=== PATIENT | male | born 1935 | race African-American/Black ===

== ENCOUNTER 2019-09-24 06:10 | Day surgery (SDC) | payer MEDICARE, OTHER ==
--- NOTE | 2019-09-23 09:49 | Opthalmology H&P ---
Ophthalmology H&P H&P Chief Complaint: decreased vision in right eye HPI Vision Affects Ability to: read, watch TV, drive, focus/use eyes together, manage personal affairs Past Ocular History: opacification - Opacified posterior capsule right eye, retinal problems - NPDR OU, HTN Retinopathy OU, HPI Narrative Blurry vision Exam Visual Acuity: OD: Hand Motion OS: 20/25 Tension: OD: 23 OS: 22 Eye Exam: normal OU: external exam, palpebral fissure-width, marginal reflex distance, levator function, corneas, anterior chambers, fundus exam; findings: lens - Pseudo OS, PCO OD Assessment/Plan Treatment Plan: other - Pars plana vitrectomy right eye Goals of Treatment: improvement of vision, enhance quality of life Attestation Attestation The risks and benefits of the surgery as well as alternative procedures were explained to the patient in detail. Alejandro Koroma MD Sep 23, 2019 09:49
--- NOTE | 2019-09-23 09:56 | Pre-Procedure Note/Attestation ---
Pre-Procedure Note/Attestation Complete Prior to Procedure Planned Procedure: right Procedure Narrative: Pars plana Vitrectomy Right Eye Indications for Procedure Pre-Operative Diagnosis: Opacified Posterior Capsule Right Eye Attestation I attest that I discussed the nature of the procedure; its benefits; risks and complications; and alternatives (and the risks and benefits of such alternatives ), prior to the procedure, with the patient (or the patient's legal call center representative). I attest that, if there was a reasonable possibility of needing a blood transfusion, the patient (or the patient's legal call center representative) was given the [facility] standardized written summary, pursuant to the [place] Miguelito Blood Safety Act ([place] Health and Safety Code # 1645, as amended). I attest that I re-evaluated the patient just prior to the surgery and that there has been no change in the patient's H&P, except as documented below: Alejandro Koroma MD Sep 23, 2019 09:56
[~2019-09-24] VITALS: Ht 189.2 cm; Wt 109.3 kg
[2019-09-24] VITALS (9 sets, daily range): BP systolic 120–136; BP diastolic 59–70
[~2019-09-24 06:10] MED LIST: ADVIL200 M2 ORAL; AMIODARONE HCL100 MG ORAL; AMLODIPINE BESYL5 MG ORAL; ASPIRIN81 MG ORAL; ATORVASTATIN CA20 MG ORAL; AVODART0.5 MG ORAL; CILOSTAZOL100 MG PO; LEVEMIR100 UNIT/1 SUBQ; LISINOPRIL20 MG ORAL; METFORMIN HCL850 M1 ORAL; METOPROLOL TART50 M1 ORAL; MULTIVITAMINS1 EA14 PO; NAPROXEN375 M2 ORAL; RAPAFLO8 MG ORAL; [UNRECOGNIZED DRUG - OTHER] PO
[2019-09-24] MEDS ORDERED: fentaNYL 100 mcg/2 mL IV ONE (06:48)
[2019-09-24] MEDS ORDERED: Midazolam 2mg/2ml Inj ONE (06:48)
[2019-09-24] MEDS: Phenylephrine 10% Opth Soln 5ml RIGHT EYE SCH ×3 (06:54→07:21)
[2019-09-24] MEDS: Tropicamide 1% Opth 15ml Soln RIGHT EYE SCH ×3 (06:54→07:21)
[2019-09-24] MEDS: Diclofenac Sod 0.1% Op Soln RIGHT EYE SCH ×3 (06:54→07:21)
[2019-09-24] MEDS: Cyclopentolate 1% Opth Sol 2ml RIGHT EYE SCH ×3 (06:54→07:21)
[2019-09-24] MEDS ORDERED: Tobramycin Op Soln 0.3% 5ml RIGHT EYE ONE (07:00)
[2019-09-24] MEDS ORDERED: Tetracaine 0.5% Opth 4ml Soln RIGHT EYE ONE (07:00)
[2019-09-24] MEDS ORDERED: Proparacaine 0.5% Opth Soln 15ml RIGHT EYE ONE (07:00)
[2019-09-24] MEDS ORDERED: Tobradex Opth Oint 3.5gm RIGHT EYE ONE (07:00)
[2019-09-24] MEDS ORDERED: Akten 3.5% 1ml Btl RIGHT EYE ONE (07:00)
[2019-09-24] MEDS ORDERED: Tobramycin Op Soln 0.3% 5ml ONE (07:00)
[2019-09-24 07:18] LABS: BASOPHILS % (AUTO) 2.1 % (0.0-2.0); EOSINOPHILS % (AUTO) 4.3 % (0.0-3.0); HEMATOCRIT 39.8 % (42.0-52.0); HEMOGLOBIN 12.6 G/DL (14.2-18.0); LYMPHOCYTES % (AUTO) 22.7 % (20.0-45.0); MEAN CORPUSCULAR VOLUME 79 FL (80-99); MONOCYTES % (AUTO) 12.8 % (1.0-10.0); NEUTROPHILS % (AUTO) 58.1 % (45.0-75.0); PLATELET COUNT 109 K/UL (150-450); RED BLOOD COUNT 5.03 M/UL (4.70-6.10); RED CELL DISTRIBUTION WIDTH 14.7 % (11.6-14.8); WHITE BLOOD COUNT 5.3 K/UL (4.8-10.8)
[2019-09-24 07:27] LABS: ANION GAP 10 mmol/L (5-15); BLOOD UREA NITROGEN 14 mg/dL (7-18); CALCIUM 8.7 MG/DL (8.5-10.1); CARBON DIOXIDE 25 MMOL/L (21-32); CHLORIDE 109 MMOL/L (98-107); CREATININE 1.2 MG/DL (0.55-1.30); POTASSIUM 4.4 MMOL/L (3.5-5.1); SODIUM 144 MMOL/L (136-145)
[2019-09-24 07:39] LABS: INR 1.1 (0.9-1.1)
[2019-09-24] MEDS ORDERED: EPINEPHrine 1mg/1ml Amp ONE (08:18)
[2019-09-24] MEDS ORDERED: Kenalog-40 1ml Vial ONE (08:18)
[2019-09-24] MEDS ORDERED: Kenalog-10 5ml Inj ONE (08:18)
[2019-09-24] MEDS ORDERED: Polysporin Opth Oint 3.5gm ONE (08:19)
[2019-09-24] MEDS ORDERED: BSS 500ml btl ONE (08:19)
[2019-09-24] MEDS ORDERED: BSS 15ml BTL ONE (08:19)
[2019-09-24] MEDS ORDERED: Hyaluronidase 150 units/ml vial ONE (08:29)
[2019-09-24] MEDS ORDERED: LR 1000ml ONE (08:30)
[2019-09-24] MEDS ORDERED: NS Irrig 1000ml ONE (08:30)
[2019-09-24] MEDS ORDERED: Sterile Water Irrig 1000ml IRRIG ONE (08:30)
[2019-09-24] MEDS ORDERED: Pred Forte 1% Opth Susp 1ml ONE (09:00)
[2019-09-24] MEDS ORDERED: Dexamethasone 4mg/ml vial ONE (09:00)
[2019-09-24] MEDS ORDERED: fentaNYL 100 mcg/2 mL IV PRN (09:15)
--- NOTE | 2019-09-24 09:15 | Anethesia Preoperative Eval ---
Anesthesia Pre-op PMH/ROS General Date of Evaluation: Sep 24, 2019 Time of Evaluation: 08:30 Anesthesiologist: Joceline ASA Score: ASA 3 Mallampati Score Class I : Soft palate, uvula, fauces, pillars visible Class II: Soft palate, uvula, fauces visible Class III: Soft palate, base of uvula visible Class IV: Only hard plate visible Mallampati Classification: Class III Surgeon: Franci Surgical Procedure: Vitrectomy Anesthesia History: none Family History: no anesthesia problems Allergies: Coded Allergies: No Known Allergies (Unverified , 09/24/19) Medications: see eMAR Patient NPO?: Yes NPO Date: Sep 24, 2019 NPO Time: 00:01 Past Medical History Cardiovascular: Reports: HTN, CAD, other - s/p CABG Pulmonary: Denies: COPD, G[place], other Gastrointestinal/Genitourinary: Reports: GERD; Denies: CRI, ESRD, other Neurologic/Psychiatric: Denies: dementia, CVA, depression/anxiety, TIA, other Endocrine: Reports: DM HEENT: Denies: cataract (L), cataract (R), glaucoma, [place] (L), [place] (R), other Hematology/Immune: Denies: anemia, DVT, bleeding disorder, other Musculoskeletal/Integumentary: Reports: DJD; Denies: OA, RA, DDD, edema, other Other: obesity PSxH Narrative: CABG/ Cataract Anesthesia Pre-op Phys. Exam Physician Exam Last Vital Signs Date Time Temp Pulse Resp B/P (MAP) Pulse Ox O2 Delivery O2 Flow Rate FiO2 09/24/19 07:18 Room Air 09/24/19 07:09 97.7 50 18 134/59 99 Constitutional: NAD Neurologic: CN 2-12 intact Cardiovascular: RRR Respiratory: CTA Gastrointestinal: S/NT/ND Airway Exam Mallampati Classification 3 Mallampati Score: Class III MO: full ROM: full Dentures: no upper, no lower Anesthesia Pre-op A/P Labs Hematology Test 09/24/19 07:08 White Blood Count 5.3 K/UL (4.8-10.8) Red Blood Count 5.03 M/UL (4.70-6.10) Hemoglobin 12.6 G/DL (14.2-18.0) L Hematocrit 39.8 % (42.0-52.0) L Mean Corpuscular Volume 79 FL (80-99) L Mean Corpuscular Hemoglobin 25.0 PG (27.0-31.0) L Mean Corpuscular Hemoglobin Concent 31.6 G/DL (32.0-36.0) L Red Cell Distribution Width 14.7 % (11.6-14.8) Platelet Count 109 K/UL (150-450) L Mean Platelet Volume 10.6 FL (6.5-10.1) H Neutrophils (%) (Auto) 58.1 % (45.0-75.0) Lymphocytes (%) (Auto) 22.7 % (20.0-45.0) Monocytes (%) (Auto) 12.8 % (1.0-10.0) H Eosinophils (%) (Auto) 4.3 % (0.0-3.0) H Basophils (%) (Auto) 2.1 % (0.0-2.0) H Coagulation Test 09/24/19 07:08 Prothrombin Time 11.4 SEC (9.30-11.50) Prothromb Time International Ratio 1.1 (0.9-1.1) Activated Partial Thromboplast Time 26 SEC (23-33) Chemistry Test 09/24/19 07:08 Sodium Level 144 MMOL/L (136-145) Potassium Level 4.4 MMOL/L (3.5-5.1) Chloride Level 109 MMOL/L (98-107) H Carbon Dioxide Level 25 MMOL/L (21-32) Anion Gap 10 mmol/L (5-15) Blood Urea Nitrogen 14 mg/dL (7-18) Creatinine 1.2 MG/DL (0.55-1.30) Estimat Glomerular Filtration Rate mL/min (>60) Glucose Level 132 MG/DL (74-106) H Calcium Level 8.7 MG/DL (8.5-10.1) Studies Pre-op Studies: EKG - SR Risk Assessment & Plan Assessment: Denies changes in health Plan: MAC Status Change Before Surgery: No Pre-Antibiotics Drug: none Precious Car CRNA Sep 24, 2019 09:15
--- NOTE | 2019-09-24 09:23 | Immediate Post-Op Evaluation ---
Immediate Post-Op Evalulation Immediate Post-Op Evalulation Procedure: vitrectomy right eye Date of Evaluation: Sep 24, 2019 Time of Evaluation: 09:23 IV Fluids: 300 Blood Pressure Systolic: 133 Blood Pressure Diastolic: 72 Pulse Rate: 52 Respiratory Rate: 14 O2 Sat by Pulse Oximetry: 97 Temperature (Fahrenheit): 97.0 Nausea: No Vomiting: No Complications none Patient Status: awake, patent Hydration Status: adequate Drug: none MoodyriPrecious baires CRNA Sep 24, 2019 09:23
[2019-09-24] MEDS ORDERED: Lidocaine 1% MPF 10mg/ml 5ml ONE (09:28)
[2019-09-24] MEDS ORDERED: Propofol 200mg/20ml IV ONE (09:28)
[2019-09-24] MEDS ORDERED: Bupivacaine 0.75% 30ml vial INJ ONE (09:37)
[2019-09-24] MEDS ORDERED: Lidocaine 2% MPF 5ml Vial INJ ONE (09:37)
--- NOTE | 2019-09-24 11:45 | Pre-op HX & Phy Repo 2 SIG ---
DATE OF ADMISSION: 09/24/2019 PRESURGICAL INTERNAL MEDICINE HISTORY AND PHYSICAL DATE OF EVALUATION: 09/24/2019. REASON FOR EVALUATION: I was asked by Dr. Alejandro Koroma to see this 84-year-old male, who is going for elective surgery on the right eye. The patient has a retinal detachment, right eye. Please see Ophthalmology History and Physical by Dr. Alejandro Koroma. PAST MEDICAL HISTORY AND REVIEW OF SYSTEMS: Remarkable for history of coronary heart disease. No DC. The patient had coronary artery bypass surgery six years ago, two-vessel, history of hypertension, history of insulin-dependent diabetes mellitus. No history of respiratory problem. History of benign prostatic hypertrophy. No renal failure. No hepatitis. No GI bleeding. Denies history of thyroid problem. SURGICAL HISTORY: Tonsillectomy, bilateral cataract extraction, spinal disc laser surgery. FAMILY HISTORY: Mother from complication of stroke and father from inguinal hernia. ALLERGIES: Not known. HABITS: Denies history of smoke, alcohol, or street drug use. PRESENT MEDICATIONS: Amlodipine, amiodarone, baby aspirin, metformin, atorvastatin, and ophthalmic drops. PHYSICAL EXAMINATION: GENERAL: The patient is alert, well-developed, well-nourished male. BMI 30.5 kg/m sq. VITAL SIGNS: Blood pressure 134/59, temperature 97.7, pulse 50, respirations 18, and O2 saturation 99% on room air. SKIN: Clear and warm. LYMPHATICS: Lymph nodes not enlarged. No rashes. HEENT: Head, normocephalic, atraumatic. Ears, clear. Eyes, full description per Dr. Alejandro Koroma. Mouth, clear and moist. No dentures. NECK: Thyroid not enlarged. Trachea midline. CHEST: No deformity or asymmetry. LUNGS: Clear to auscultation and percussion. HEART: Sinus bradycardia. No ectopy. No murmur. ABDOMEN: Soft, benign. Liver and spleen not enlarged. EXTREMITIES: No deformity. No edema. No calf tenderness. GENITOURINARY TRACT: Benign prostatic hypertrophy. Nocturia x5. DIAGNOSTIC DATA: ECG, sinus bradycardia, right bundle-branch block. LABORATORY DATA: Fasting blood sugar 136 mg/dL. The patient did not eat or drink from 7 p.m. yesterday. IMPRESSION: 1. Retinal detachment, right eye. 2. Hypertension, controlled. 3. heart disease, history of coronary artery bypass surgery, two-vessel. 4. Insulin-dependent diabetes mellitus, controlled. 5. Benign prostatic hypertrophy. 6. Obesity with BMI of 30.5 kg/m sq. PLAN: Pars plana vitrectomy, right eye per Dr. Alejandro Koroma. CONCLUSION: The patient is an 84-year-old male, who has history of coronary artery bypass surgery, bradycardia on EKG and right bundle-branch block. He is asymptomatic. The patient has history of diabetes controlled and hypertension, which was controlled as well. The patient did not eat or drink from 7 p.m. yesterday. The patient's condition optimized for surgery. Thank you very much, Dr. Koroma, for privilege to participate in presurgical care of this interesting patient. Maria D Allan M.D. DR: NELLA JOB#: [id number] CC:
--- NOTE | 2019-09-24 14:53 | 48 Hour Post Anesthesia Eval ---
Post Anesthesia Evaluation Procedure: vitrectomy right eye Date of Evaluation: Sep 24, 2019 Blood Pressure Systolic: 136 0: 66 Pulse Rate: 57 Respiratory Rate: 14 O2 Sat by Pulse Oximetry: 98 Airway: patent Nausea: No Vomiting: No Hydration Status: adequate Cardiopulmonary Status: stable Mental Status/LOC: patient returned to baseline Post-Anesthesia Complications: none Follow-up care needed: N/A Precious Car CRNA Sep 24, 2019 14:53
--- NOTE | 2019-09-24 16:34 | Brief Operative Note ---
Immediate Post Operative Note Operative Note Chief Complaint: Blurry vision Pre-op Diagnosis: Opacified Posterior Capsule Right Eye Procedure: Pars plana vitrectomy right eye Post-op Diagnosis: Pseudo OD Post-op Diagnosis: same as pre-op Findings: consistent w/pre-op dx studies Surgeon: Alejandro Koroma MD Anesthesiologist: Precious Car CRNA Anesthesia: MAC Specimen: none Complications: none Condition: stable Fluids: LR Estimated Blood Loss: none Drains: none Implant(s) used?: No Alejandro Koroma MD Sep 24, 2019 16:34
--- NOTE | 2019-09-24 16:47 | Operative Note - PDOC ---
Operative Note Operative Note Date of Operation/Procedure: Sep 24, 2019 Chief Complaint: Blurry vision Pre-op Diagnosis: Opacified Posterior Capsule Right Eye Procedure: Pars plana vitrectomy right eye Post-op Diagnosis: Pseudo OD Post-op Diagnosis: same as pre-op Operative Findings: consistent w/pre-op dx studies Surgeon: Alejandro Koroma MD Anesthesiologist: Precious Car CRNA Anesthesia: MAC Specimen: none Complications: none Condition: stable Fluids: LR Estimated Blood Loss: none Drains: none Implant(s) used?: No Indications for Procedure Blurry vision right eye Description of Procedure This patient has been complaining of decrease vision in the right eye. The patient complains of difficulties performing activities of daily living and wants to manage personal affairs with comfort and accuracy and see well enough to move with safety at home and outdoors. The risks, benefits and alternatives of the procedure were discussed with the patient in the office prior to scheduling surgery. All questions from the patient were answered after the surgical procedure was explained in detail. The risks of the procedure as explained to the patient include, but are not limited to, pain, infection, bleeding, loss of vision, retinal detachment, need for further surgery, loss of lens nucleus, double vision, etc. Alternative procedures were discussed which include, to do nothing or seek a second opinion. Informed consent for this procedure was obtained from the patient. The patient was referred to a primary care physician for a cardiopulmonary clearance prior to surgery, after proper evaluation was done patient was properly scheduled for outpatient surgery. The patient was brought to the operating room where the anesthesiologist established I.V. lines and cardiac monitoring leads. Mild intravenous sedation was administered. The patient was then prepared with a 5% solution of povidone- iodine to the conjunctival fornix and lashes, and a 5 % solution of povidone- iodine to the lids and periorbital skin. The patient was then draped and lid speculum was placed in the eye. An G 23 trocar infusion cannula was inserted in the inferotemporal quadrant, approximately 4 mm posterior to the limbus.The infusion cannula was confirmed to be in appropriate position prior to initiating infusion.~The light pipe and the vitrector were inserted into the eye and a core vitrectomy was performed under wide field visualization. The vitrectomy instrument was used to engage the dense posterior capsule and the posterior capsule was dissected using the vitrectomy instrument.~The trocar was then removed.After this was done, all the wounds were re inspected, confirmed to be well sealed and the eye had an appropriate intraocular pressure.Antibiotic ointment was then placed in the eye followed by patching in typical fashion for ophthalmologic surgery. The patient tolerated the procedure well and was transferred to the recovery room in good condition.Proper postoperative management was reviewed with the patient prior to discharge and advised to follow up the next day. Alejandro Koroma MD Sep 24, 2019 16:47
== END 2019-09-24 10:55 | disposition home or self-care (01) ==
LOC: SUR 06:10
DX: H26.491 Other secondary cataract, right eye (principal); H53.8 Other visual disturbances; I11.9 Hypertensive heart disease without heart failure; Z95.1 Presence of aortocoronary bypass graft; E11.9 Type 2 diabetes mellitus without complications; M19.90 Unspecified osteoarthritis, unspecified site; E66.9 Obesity, unspecified; Z68.30 Body mass index [BMI] 30.0-30.9, adult; Z79.899 Other long term (current) drug therapy; H33.21 Serous retinal detachment, right eye; I10 Essential (primary) hypertension; N40.0 Benign prostatic hyperplasia without lower urinary tract symptoms; I45.10 Unspecified right bundle-branch block; R00.1 Bradycardia, unspecified; Z79.4 Long term (current) use of insulin
CPT/HCPCS: 36415; 67036; 80048; 82962; 85025; 85610; 85730; J0171; J1100; J2250; J2704; J3010; J3470; J3490; 94003; 94150